=== PATIENT | male | born 1965 | race African-American/Black ===

== ENCOUNTER 2019-07-27 11:27 | Emergency (ER) | payer SELFPAY ==
--- NOTE | ~2019-07-27 | CT_ITS ---
EXAMINATION: CT brain wo con INDICATION: Headache and dizziness COMPARISON: None TECHNIQUE: Standard unenhanced head CT. The dose-length product (DLP) was 529.67 mGy-cm. The mA was a djusted according to patient size. Iterative reconstruction technique was employed. FINDINGS: There is no intracranial hemorrhage, acute infarction, or abnormal mass lesion. The ventric les are normal. There is no abnormal mass effect or midline shift. The griffith-white matter differentiat ion is normal. The basal cisterns are patent. The orbits are normal. The paranasal sinuses, mastoids and calvarium are normal. IMPRESSION: 1. No acute intracranial abnormality. Reviewed, dictated and finalized at location [facility].
--- NOTE | ~2019-07-27 | XR_ITS ---
EXAMINATION: XR chest 1V portable DATE: 07/27/2019 11:44 INDICATION: Dizziness. Headache. TECHNIQUE: A single frontal view of the chest was obtained. COMPARISON: None. FINDINGS: The chest demonstrates clear lungs without pneumonia, pleural effusion, or pneumothorax. Th e heart size is normal. IMPRESSION: 1. No acute cardiopulmonary disease. Reviewed, dictated and finalized at location [facility].
[2019-07-27 11:31] VITALS: BP 147/95; PULSE 89; RESP 20; TEMP 36.6; O2SAT 100
--- NOTE | 2019-07-27 11:34 | ECG_ITS ---
Measurements Intervals [place] Rate: 80 P: 57 DE: 135 QRS: 63 QRSD: 102 T: 31 QT: 386 QTc: 448 Interpretive Statements SINUS RHYTHM ST ELEVATION IN ANTERIOR LEADS- PROBABLY EARLY REPOLARIZATION BORDERLINE ECG Electronically Signed On 07-27-2019 11:49:32 CDT by Jefe [place] D.O.
[2019-07-27 11:44] VITALS: BP 147/95; PULSE 77; RESP 14; TEMP 36.6; O2SAT 100
[2019-07-27 11:55] LABS: Basophils Absolute Auto 0.1 K/mm3 (0.0-0.1); Basophils Percent Auto 0.6 % (0.2-1.2); Eosinophils Absolute Auto 0.1 K/mm3 (0-0.3); Eosinophils Percent Auto 1.3 % (0-4.4); Hematocrit 39.7 % (42.0-52.0); Hemoglobin 13.5 g/dL (14.0-18.0); Immature Granulocyte Absolute 0.02 K/mm3 (0.00-0.031); Immature Granulocyte Percent A 0.2 % (0-0.5); Lymphocytes Absolute Auto 3.11 K/mm3 (0.9-3.2); Lymphocytes Percent Auto 29.6 % (18.3-44.2); Mean Corpuscular Hemoglobin 29.5 pg (26-34); Mean Corpuscular Volume 86.7 fl (80-100); Mean Platelet Volume 10.3 fl (7.4-10.4); Monocytes Absolute Auto 1.1 K/mm3 (0.1-0.6); Monocytes Percent Auto 10.6 % (2.6-8.5); Neutrophils Absolute Auto 6.1 K/mm3 (1.3-6.7); Neutrophils Percent Auto 57.7 % (45.5-73.1); Platelet Count Result 255 k/mm3 (150-375); Red Blood Count 4.58 M/mm3 (4.6-6.20); White Blood Count 10.5 K/mm3 (4.5-10.0)
[2019-07-27 12:08] LABS: Blood Urea Nitrogen 8 mg/dL (9-20); Calcium 9.6 mg/dL (8.4-10.2); Carbon Dioxide 25 mmol/L (22-30); Chloride 105 mmol/L (98-107); Estimated CRCL calculation 57 ml/min; Estimated Glomerular Filt Rate > 60; Glucose 108 mg/dL (75-110); Potassium 4.1 mmol/L (3.4-5.0); Sodium 136 mmol/L (137-145)
[2019-07-27 12:10] LABS: INR 0.9; Prothrombin Time 12.1 Seconds (11.1-14.7)
[2019-07-27 12:11] LABS: Partial Thromboplastin Time 25.5 SECONDS (22.3-36.8)
[2019-07-27] MEDS: SODIUM CHLORIDE 0.9% IV 1,000 ML 999 ML IV CONT (12:14)
[2019-07-27] MEDS: MECLIZINE HCL 25 MG TABLET PO (12:14)
--- NOTE | 2019-07-27 12:18 | ED.DIZZY ---
HPI - Dizziness General Chief Complaint: Dizziness <Maycol Patel PA-C - Last Filed: 07/27/19 13:11> Stated Complaint: dizzy <Maycol Patel PA-C - Last Filed: 07/27/19 13:11> Time Seen by Provider: 07/27/19 11:32 <Maycol Patel PA-C - Last Filed: 07/27/19 13:11> Source: patient <Maycol Patel PA-C - Last Filed: 07/27/19 13:11> Mode of arrival: ambulatory <Maycol Patel PA-C - Last Filed: 07/27/19 13:11> Limitations: no limitations <HIRA Valverde Last Filed: 07/27/19 13:11> History of Present Illness HPI Narrative: Patient is a 53-year-old male who presents to emergency department noting that he developed dizziness yesterday with the sensation that the room was spinning about him notes that the symptoms have been intermittent patient denies recent head injury or trauma does note that he has been congested with frontal sinus congestion and mild sore throat patient denies similar occurrence in the past does not take anything for his symptoms patient notes that he did have one episode of emesis yesterday patient presents with normal gait and no distress and denies any current dizziness <Maycol Patel PA-C - Last Filed: 07/27/19 13:11> Related Data Allergies/Adverse Reactions: Allergies Allergy/AdvReac Type Severity Reaction Status Date / Time Penicillins Allergy Mild Rash Verified 07/27/19 11:34 <Maycol Patel PA-C - Last Filed: 07/27/19 13:11> Review of Systems Review of Systems: All systems reviewed & are unremarkable except as noted in HPI and below <Maycol Patel PA-C - Last Filed: 07/27/19 13:11> PMFSH Social History Social History: Social History (Updated 07/27/19 @ 12:19 by Maycol Patel PA-C) Smoking status: Current every day smoker <Maycol Patel PA-C - Last Filed: 07/27/19 13:11> Exam Narrative: Exam Narrative: GENERAL: Well-appearing, well-nourished, and in no acute distress. HEAD: Normocephalic, atraumatic. EYES: PERRLA and EOMI. ENT: Nares clear, no rhinorrhea or epistaxis. Mucous membranes moist. Oropharynx without tonsillar hypertrophy exudate or other lesions. Bilateral TMs pearly griffith nonbulging NECK: Supple. No adenopathy or masses. CHEST: Clear to auscultation. No respiratory distress. No wheezes rales or rhonchi HEART: Regular rate and rhythm. No murmur heard. Normal peripheral pulses. ABDOMEN: Soft, nontender, nondistended EXTREMITIES: Normal range of motion. No edema. SKIN: Warm, dry, no rash. NEURO: No focal deficits. Alert and oriented x3. Cranial nerves II through XII grossly intact. Cerebellar intact. Normal speech and gait. Motor and sensory intact and symmetrical in the extremities PSYCH: Normal mood and affect. <HIRA Valverde Last Filed: 07/27/19 13:11> Course Course Emergency Course: Patient in the room resting comfortably no distress feels better with medications and felt appropriate for discharge <HIRA Valverde Last Filed: 07/27/19 13:11> Vital Signs Vital signs: Vital Signs Temperature 36.6 C 07/27/19 11:31 Pulse Rate 89 07/27/19 11:31 Respiratory Rate 07/27/19 11:31 Blood Pressure 147/95 H 07/27/19 11:31 Pulse Oximetry 100 07/27/19 11:31 Temperature 36.7 C 07/27/19 13:17 Pulse Rate 77 07/27/19 13:17 Respiratory Rate 20 07/27/19 13:17 Blood Pressure 140/70 07/27/19 13:17 Pulse Oximetry 99 07/27/19 13:17 <HIRA Valverde Last Filed: 07/27/19 13:11> Vital Signs Temperature 36.6 C 07/27/19 11:31 Pulse Rate 89 07/27/19 11:31 Respiratory Rate 20 07/27/19 11:31 Blood Pressure 147/95 H 07/27/19 11:31 Pulse Oximetry 100 07/27/19 11:31 Temperature 36.7 C 07/27/19 13:17 Pulse Rate 77 07/27/19 13:17 Respiratory Rate 20 07/27/19 13:17 Blood Pressure 140/70 07/27/19 13:17 Pulse Oximetry 99 07/27/19 13:17 <Kelly Laguna MD - Last Filed:
[2019-07-27 12:20] LABS: Troponin I < 0.012 ng/mL (0.000-0.034)
[2019-07-27 12:53] VITALS: BP 144/83; PULSE 66; RESP 20; O2SAT 100
--- NOTE | 2019-07-27 12:55 | PC.NURSE ---
Pt ambulated around nurses station, denies dizziness. EDP made aware.
[2019-07-27 13:17] VITALS: BP 140/70; PULSE 77; RESP 20; TEMP 36.7; O2SAT 99
== END 2019-07-27 13:19 | disposition home or self-care (01) ==
PROVIDERS: Emergency Medicine Emergency Medical Services; Emergency Provider Emergency Medicine
DX: J32.9 Chronic sinusitis, unspecified (principal); R42 Dizziness and giddiness; F17.200 Nicotine dependence, unspecified, uncomplicated; R94.31 Abnormal electrocardiogram [ECG] [EKG]
CPT/HCPCS: 36415; 70450; 71045; 80048; 82948; 84484; 85025; 85610; 85730; 93005; 96360; 99284; A9270; J7030

== ENCOUNTER 2019-11-01 18:40 | Emergency (ER) | payer SELFPAY ==
--- NOTE | ~2019-11-01 | CT_ITS ---
EXAMINATION: CT abdomen pelvis w con DATE: 11/01/2019 21:26 INDICATION: Mid abdominal pain TECHNIQUE: Computed tomography (CT) of the abdomen and pelvis was performed with 100 cc Omnipaque 350 intravenous contrast. Automated exposure control and iterative reconstruction technique were employe d. Exam dose: 183.00 mGy-cm total exam DLP. COMPARISON: None. FINDINGS: The lung bases are clear. Normal heart size. No pericardial or pleural effusion. Hepatic steatosis. No hepatic space-occupying mass lesion. The gallbladder is unremarkable. No bile d uct or pancreatic duct dilatation. No pancreatic mass lesion or calcification. 8 mm hypoenhancing nonspecific splenic lesion. Normal morphology of the adrenal glands. No renal mass lesion or urinary tract calculus or hydroureteronephrosis is evident. No abdominal aortic aneurysm. No intraperitoneal or retroperitoneal or pelvic mass lesion or adenopat hy or ascites. The prostate gland is moderately enlarged, with mild calcification. There is moderate diffuse thicken ing of the urinary bladder wall. There are small bowel segments dilated up to 2 cm diameter in the right lower quadrant, with air-flui d levels, with mild thickening of the wall of some small bowel segments. The distal small bowel is de compressed. Findings may be consistent with nonspecific partial small bowel obstruction versus adynam ic ileus. The appendix measures up to proxy 6.4 mm caliber. There is no appendicolith. No abscess is identified . Fat-containing umbilical hernia. Diffuse idiopathic skeletal hyperostosis of the lower thoracic spine. No suspicious osteolytic or ost eoblastic lesions are noted. IMPRESSION: Mild adynamic ileus versus partial small bowel obstruction. Diffusion diagnosis includes enteritis. Consider infectious or inflammatory enteritis. 6.4 mm diameter of the appendix; no abscess. Clinical correlation is advised Hepatic steatosis Reviewed, dictated and finalized at [facility]. Reviewed, dictated and finalized at location [facility]. IMPRESSION: Mild adynamic ileus versus partial small bowel obstruction. Diffus ion diagnosis includes enteritis. Consider infectious or inflammatory enteritis . 6.4 mm diameter of the appendix; no abscess. Clinical correlation is advised Hepatic steatosis
[2019-11-01 18:44] VITALS: BP 125/80; PULSE 110; RESP 16; TEMP 36.2; O2SAT 100
--- NOTE | 2019-11-01 19:29 | ED.ABDPAIN ---
HPI - Abdominal Pain General Chief Complaint: Abdominal Pain Stated Complaint: abd pain Time Seen by Provider: 11/01/19 19:06 Source: patient Mode of arrival: ambulatory Limitations: no limitations History of Present Illness HPI narrative: This patient is a 53 year old male who presents for evaluation of mid abdominal pain . He states he has been having this intermittent sharp pain for 2 years. This morning his pain was so severe that it sent him to his knees. He also reports he had associated nausea and vomiting. He states 2 years ago he was evaluated for this pain and he reports having a colonoscopy but no one told him the cause of his pain. He denies fever, chills, difficulty urinating or diarrhea. He has no insurance and no primary care physician. Related Data Home Medications Medication Instructions Recorded Confirmed diphenhydramine HCl [Sleep Aid 25 mg PO HS 11/01/19 (diphenhydramine)] Allergies Allergy/AdvReac Type Severity Reaction Status Date / Time Penicillins Allergy Mild Rash Verified 11/01/19 18:52 Review of Systems Review of Systems: All systems reviewed & are unremarkable except as noted in HPI and below Constitutional: Constitutional: Denies chills and Denies fever(s) Cardiovascular: Cardiovascular: Denies chest pain Respiratory: Respiratory: Denies cough and Denies dyspnea Gastrointestinal: Gastrointestinal: Reports abdominal pain, Reports nausea and Reports vomiting Genitourinary: Genitourinary: Denies oliguria and Denies dysuria Musculoskeletal: Musculoskeletal: Denies back pain and Denies muscle cramps PMFSH Past Medical History Medical History (Updated 11/02/19 @ 00:02 by Salma Rodríguez MD) Patient denies medical problems Surgical History Surgical History (Updated 11/01/19 @ 19:30 by Salma Rodríguez MD) No significant past surgical history Social History Social History (Updated 11/01/19 @ 19:30 by Salma Rodríguez MD) Smoking status: Current every day smoker Alcohol intake: current Substance use type: marijuana Exam Const: General: no acute distress and alert Nutritional Appearance: thin Orientation/consciousness: patient oriented x3 HENMT: Head: normocephalic and atraumatic Face and sinus: face symmetric Throat: posterior oropharynx normal Eyes: EOM: EOMs intact bilaterally Chest: Chest palpation & inspection: normal inspection of the chest Resp: Effort & Inspection: normal respiratory effort, no retractions and no use of accessory muscles Auscultation: clear to auscultation bilaterally Cardio: Rate: regular rate Rhythm: regular rhythm Heart sounds: no murmurs GI: GI Palp: Yes Soft to palpation, Yes Tenderness to palpation present (GI) (epigastric, RUQ, LUQ), No Guarding due to palpation present (GI) and No Rigid due to palpation Course Reevaluation(s) Reevaluation #1: PAtient states he has no pain, no nausea or vomiting after eating and drinking. He had bowel movement this morning. He does not appear that he has an obstruction. He has no tenderness to suggest appendicitis and radiologist report inflammatory changes around the appendix. Date: 11/02/19 Time: 00:00 Vital Signs Vital signs: Vital Signs Temperature 97.1 F L 11/01/19 18:44 Pulse Rate 110 H 11/01/19 18:44 Respiratory Rate 16 11/01/19 18:44 Blood Pressure 125/80 11/01/19 18:44 Pulse Oximetry 100 11/01/19 18:44 Temperature 98.3 F 11/02/19 00:00 Pulse Rate 79 11/02/19 00:00 Respiratory Rate 19 11/02/19 00:00 Blood Pressure 115/56 L 11/02/19 00:00 Pulse Oximetry 98 11/02/19 00:00 MDM - Abdominal Pain Lab Data Attestation: I reviewed the patient's lab results. Result diagrams: 11/01/19 19:41 11/01/19 19:41 Labs: Lab Results 11/01/19 11/01/19 11/01/19 Range/Units 19:41 19:41 19:41 WBC 12.0 H (4.5-10.0) K/mm3 RBC 4.54 L (4.6-6.20) M/mm3 Hgb 13.5 L (14.0-18.0) g/dL
[2019-11-01 19:52] LABS: Basophils Absolute Auto 0.1 K/mm3 (0.0-0.1); Basophils Percent Auto 0.4 % (0.2-1.2); Eosinophils Absolute Auto 0.2 K/mm3 (0-0.3); Eosinophils Percent Auto 1.3 % (0-4.4); Hematocrit 39.1 % (42.0-52.0); Hemoglobin 13.5 g/dL (14.0-18.0); Immature Granulocyte Absolute 0.05 K/mm3 (0.00-0.031); Immature Granulocyte Percent A 0.4 % (0-0.5); Lymphocytes Absolute Auto 4.66 K/mm3 (0.9-3.2); Lymphocytes Percent Auto 38.8 % (18.3-44.2); Mean Corpuscular HGB Conc 34.5 g/dl (32-36); Mean Corpuscular Hemoglobin 29.7 pg (26-34); Mean Corpuscular Volume 86.1 fl (80-100); Mean Platelet Volume 10.3 fl (7.4-10.4); Monocytes Absolute Auto 1.3 K/mm3 (0.1-0.6); Monocytes Percent Auto 11.1 % (2.6-8.5); Neutrophils Absolute Auto 5.8 K/mm3 (1.3-6.7); Platelet Count Result 274 k/mm3 (150-375); Red Blood Count 4.54 M/mm3 (4.6-6.20); Red Cell Distribution Width 15.2 % (11.5-14.5)
[2019-11-01 20:04] LABS: Alanine Aminotransferase 27 U/L (4-50); Albumin Level 4.6 g/dL (3.5-5.1); Alkaline Phosphatase 62 U/L (38-126); Anion Gap 6 mmol/L (8-16); Aspartate Amino Transferase 37 U/L (17-59); Bilirubin,Total 0.3 mg/dL (0.2-1.3); Blood Urea Nitrogen 8 mg/dL (9-20); Calcium 9.3 mg/dL (8.4-10.2); Carbon Dioxide 26 mmol/L (22-30); Chloride 103 mmol/L (98-107); Estimated CRCL calculation 63 ml/min; Estimated Glomerular Filt Rate > 60; Glucose 101 mg/dL (75-110); Lipase 73 U/L (23-300); Sodium 135 mmol/L (137-145)
[2019-11-01 20:05] LABS: Lactic Acid Reflex 0.9 mmol/L (0.7-2.1)
[2019-11-01 20:13] LABS: Add Urine Microscopic? YES; Appearance Urine Clear (Clear); Bilirubin Urine Negative (Negative); Blood Urine Negative (Negative); Color Urine Yellow (Yellow); Glucose Urine UA Negative (Negative); Ketones Urine Negative (Negative); Leukocyte Esterase Ur Negative LEU/UL (Negative); Mucus Urine Few /lpf; Nitrate Urine Negative (Negative); Protein Urine Negative (Negative); RBC Urine 0-2 /hpf (0-2); Specific Grav Ur 1.028 (1.001-1.035); WBC Urine 0-3 /hpf
[2019-11-01 22:44] VITALS: BP 142/87; PULSE 78; RESP 20; O2SAT 100
--- NOTE | 2019-11-01 23:42 | PC.NURSE ---
report received at this time. pt sitting up on stretcher in NAD. pt denies any pain. RR even and unlabored. will continue to monitor pt for baseline status changes. blanket provided.
[2019-11-02] VITALS: BP 115/56; PULSE 79; RESP 19; TEMP 36.8; O2SAT 98
== END 2019-11-02 | disposition home or self-care (01) ==
PROVIDERS: Emergency Provider General Practice
DX: K52.9 Noninfective gastroenteritis and colitis, unspecified (principal); F17.200 Nicotine dependence, unspecified, uncomplicated; K76.0 Fatty (change of) liver, not elsewhere classified
CPT/HCPCS: 36415; 74177; 80053; 81001; 83605; 83690; 85025; 99284; Q9967

== ENCOUNTER 2022-06-19 00:55 | Emergency (ER) | payer BC, SELFPAY ==
[2022-06-19 00:55] VITALS: BP 128/79; PULSE 98; RESP 18; O2SAT 99
[2022-06-19] MEDS: LIDOCAINE HCL 1% LOCAL INJ 10 ML VIAL (02:41)
[2022-06-19] MEDS: LIDOCAINE/PRILOCAINE CREAM 2.5-2.5% TUBE 1 EACH TOPICAL (02:42)
[2022-06-19] MEDS: HYDROcodone/acetaminophen (*CRX) 5-325 MG TABLET 1 TAB PO (02:42)
[2022-06-19 03:49] VITALS: BP 131/89; PULSE 79; RESP 18; TEMP 36.6; O2SAT 99
--- NOTE | 2022-06-21 02:56 | ED.SKABFB ---
HPI - Skin/Abscess/Foreign Bdy General Chief complaint: Skin/Abscess/Foreign Body Stated complaint: BOIL ON BUTTOCK Time Seen by Provider: 06/19/22 01:00 History of Present Illness HPI narrative: 56-year-old male here for evaluation of pain, swelling and redness to his left buttock x1 week. Patient states the pain and swelling has increased over the past week since onset has become unbearable. He has a history of similar previous sensation in the past but states it drained spontaneously without intervention. He denies any fevers, abdominal pain, diarrhea or constipation. Related Data Home Medications Medication Instructions Recorded Confirmed diphenhydramine HCl 25 mg capsule 25 mg PO HS 11/01/19 (Sleep Aid (diphenhydramine)) Allergies Allergy/AdvReac Type Severity Reaction Status Date / Time Penicillins Allergy Mild Rash Verified 11/01/19 18:52 Review of Systems Review of Systems: Gen.: Denies fevers or chills Eyes: Denies eye pain or visual change ENT: Denies congestion Respiratory: Denies shortness of breath or cough CV: Denies chest pain or palpitations GI: Denies abdominal pain nausea, emesis or diarrhea denies burning, urgency, frequency or hematuria Musculoskeletal: Denies back pain or muscle pain Neuro: Denies numbness, tingling, weakness or focal weakness Skin: Reports lesion to left buttock Except as documented, all other systems reviewed and negative [facility] Past Medical History Medical History Patient denies medical problems Surgical History Surgical History No significant past surgical history Social History Social History (Updated 11/01/19 @ 19:30 by Salma Rodríguez MD) Smoking status: Current every day smoker Alcohol intake: current Substance use type: marijuana Exam Narrative: Gen: Uncomfortable appearing Eyes: EOMI, no icterus Pulm: Respirations even and unlabored, symmetric thorax expansion, no audible stridor or visible cyanosis CV: Regular rate per telemetry GI: No distension, no voluntary/involuntary guarding Neuro: AOx4, moves all extremities without apparent difficulty or weakness, follows commands Skin: There is a 4 x 3 cm area of fluctuance, induration to the left medial buttock that is tender to palpation with some overlying redness. No spontaneous drainage. Psych: Normal mood/affect, insight/judgement good, adequate fund of knowledge, recent/remote memory intact Course Vital Signs Vital signs: Vital Signs Pulse Rate 98 06/19/22 00:55 Respiratory Rate 18 06/19/22 00:55 Blood Pressure 128/79 06/19/22 00:55 Pulse Oximetry 99 06/19/22 00:55 Oxygen Delivery Room Air 06/19/22 00:55 Temperature 98 F 06/19/22 03:49 Pulse Rate 79 06/19/22 03:49 Respiratory Rate 18 06/19/22 03:49 Blood Pressure 131/89 06/19/22 03:49 Pulse Oximetry 99 06/19/22 03:49 Oxygen Delivery Room Air 06/19/22 00:55 Procedures Abscess I/D carole-rectal: Date of Incision: 06/19/22 Time of Incision: 01:30 Side (if applicable): left Sedation/analgesia: other (norco) Local Anesthetic: lidocaine 1% Amount of anesthesia used (mL): 2 Technique: incised with #15 blade and probed loculations Amount of fluid expressed (mL): 5 Irrigation: Yes Packing used?: plain I&D Results: Pus and Blood MDM - Skin/Abscess/Foreign Bdy MDM Narrative Medical decision making narrative: 56-year-old male here for evaluation of a perirectal abscess that has developed over the past week. The abscess was drained in the emergency department. Patient tolerated procedure well. Will be sent home with doxycycline. We discussed return precautions and he voiced understanding. Discharge Plan Discharge Clinical Impression: Abscess Patient Disposition: Home, Self-Care Condition: [place]
== END 2022-06-19 03:50 | disposition home or self-care (01) ==
PROVIDERS: Emergency Provider Physician Assistant
DX: K61.1 Rectal abscess (principal); F17.200 Nicotine dependence, unspecified, uncomplicated
CPT/HCPCS: 46040; 99283; A9270

== ENCOUNTER 2024-02-07 12:29 | Emergency (ER) | payer BC, SELFPAY ==
[2024-02-07 12:39] VITALS: BP 114/86; PULSE 95; RESP 16; TEMP 37.1; O2SAT 100
--- NOTE | 2024-02-07 13:23 | ED_ITS ---
HPI - Nausea/Vomiting/Diarrhea General Chief complaint: Nausea/Vomiting/Diarrhea Stated complaint: Diarrhea Time Seen by Provider: 02/07/24 13:24 Source: patient, RN notes reviewed and old records reviewed Mode of arrival: ambulatory Limitations: no limitations History of Present Illness HPI Narrative: Patient presents requesting a work note. He states that for a few days he had some nausea, vomiting, diarrhea. He reports that symptoms resolved yesterday but he is unable to go back to work without a note. He has no complaints today. Related Data Home Medications Medication Instructions Recorded Confirmed diphenhydramine HCl 25 mg capsule 25 mg PO HS 11/01/19 (Sleep Aid (diphenhydramine)) Allergies Allergy/AdvReac Type Severity Reaction Status Date / Time Penicillins Allergy Mild Rash Verified 02/07/24 12:53 Review of Systems Review of Systems: All systems reviewed & are unremarkable except as noted in HPI and below Constitutional: Constitutional: Reports no additional constitutional complaints ENT: Reports system reviewed and no additional complaints, except as documented Cardiovascular: Cardiovascular: Reports no additional cardiovascular complaints Respiratory: Respiratory: Reports no additional respiratory complaints Gastrointestinal: Gastrointestinal: Reports as per HPI and Reports no additional gastrointestinal complaints [facility] Past Medical History Medical History Patient denies medical problems Surgical History Surgical History No significant past surgical history Social History Social History Smoking status: Current every day smoker Alcohol intake: current Substance use type: marijuana Comments At the time of my signature, I reviewed and agree with the nursing past medical, surgical, social, and family history. There is no relevant family history pertinent to the patient complaint. Exam Const: General: cooperative, no acute distress, alert and awake Orientation/consciousness: oriented to person, oriented to place and oriented to time HENMT: Head: normal to inspection Resp: Effort & Inspection: normal respiratory effort and able to speak in complete sentences Auscultation: clear to auscultation bilaterally, no crackles, no rales, no rhonchi and no wheezes Cardio: Palpation: normal PMI Rate: regular rate Rhythm: regular rhythm Heart sounds: S1 normal heart sound present and S2 normal heart sound present GI: GI Palp: Yes Soft to palpation, No Tenderness to palpation present (GI) and No Guarding due to palpation present (GI) Auscultation: normal bowel sounds Neuro: General: oriented to person, oriented to place and oriented to time Cranial nerves: Yes CN's II-XII intact bilaterally Psych: Appearance: grossly normal Thought process: Normal thought process present Insight: Good insight present (Psych) Judgement: Good judgement present (Psych) Course Course Level of Care: Express Care Visit Vital Signs Vital signs: Vital Signs Temperature 98.8 F 02/07/24 12:39 Pulse Rate 95 02/07/24 12:39 Respiratory Rate 16 02/07/24 12:39 Blood Pressure 114/86 02/07/24 12:39 Pulse Oximetry 100 02/07/24 12:39 Oxygen Delivery Room Air 02/07/24 12:39 Temperature 98.8 F 02/07/24 12:39 Pulse Rate 95 02/07/24 12:39 Respiratory Rate 16 02/07/24 12:39 Blood Pressure 114/86 02/07/24 12:39 Pulse Oximetry 100 02/07/24 12:39 Oxygen Delivery Room Air 02/07/24 12:39 Reviewed Discharge Plan Discharge Clinical Impression: Gastroenteritis Patient Disposition: Home, Self-Care Condition: Stable Instructions: Antibiotic Form, Gastroenteritis (ED) Additional Instructions: Follow-up with primary care provider. Emergency department for new or worse symptoms Patient Language: Pashto Prescriptions: No Action diphenhydramine HCl [Sleep Aid (diphenhydramine)] 25 mg Capsule 25 mg PO HS Follow-up/Referrals: PHYSICIAN,PASSENGER REPRESENTATIVE [Primary Care Provider] - Stand Alone Forms: Work/School Release IP Time of Disposition: 13:29
== END 2024-02-07 13:44 | disposition home or self-care (01) ==
PROVIDERS: Emergency Provider Nurse Practitioner Family
DX: K52.9 Noninfective gastroenteritis and colitis, unspecified (principal); F17.200 Nicotine dependence, unspecified, uncomplicated; F12.90 Cannabis use, unspecified, uncomplicated
CPT/HCPCS: 99211; G0463